=== PATIENT | female | born 1970 | race African-American/Black ===

== ENCOUNTER 2017-01-19 05:15 | Day surgery (SDC) | payer OTHER ==
[2017-01-17 14:03] VITALS: BMI 30.8
--- NOTE | 2017-01-19 05:43 | HP ---
History & Physical Update - History History: No Change - Physical Physical: No Change - Assessment Assessment: No Change - Plan Plan: No Change (Symptomatic Fibroids - for Robotic Hysterectomy, b/l salpingectomy)
[2017-01-19] MEDS ORDERED: ceFAZolin SODIUM 1 GM VIAL IVPB ONE (08:30)
[2017-01-19] MEDS ORDERED: ONDANSETRON 4 MG/2 ML VIAL IVPUSH PRN (08:46)
[2017-01-19] MEDS ORDERED: LACTATED RINGERS SOLUTION 1,000 ML IV SCH (09:00)
[2017-01-19] MEDS ORDERED: BUPIVACAINE HCL/PF 0.5% (5MG/ML) 10 ML VIAL IJ ONE ×2 (09:08→10:40)
[2017-01-19] MEDS ORDERED: ISOSULFAN BLUE 10 MG/ML VIAL SQ ONE (09:46)
[2017-01-19] MEDS ORDERED: IBUPROFEN 800 MG/8 ML IJ IVPB PRN (10:59)
[2017-01-19] MEDS ORDERED: LACTATED RINGERS SOLUTION 1,000 ML/1,000 ML INFUS.BAG IV SCH (11:00)
[2017-01-19] MEDS ORDERED: HYDROmorphone HCL CARPU-JECT 1 MG/1 ML DISP.SYRIN IVPB PRN (11:01)
--- NOTE | 2017-01-19 11:04 | OP ---
Operative Note - Note: Operative Date: 01/19/17 Pre-Operative Diagnosis: fibroids, AUB Operation: robotic assisted total laparoscopic hysterectomy, b/l salpingectomy, cystoscopy Findings: normal b/l tubes and ovaries fibroid uterus right lower segment fibroid Surgeon: Leena Shaikh Community [employer] Education Coordinator: Sailaja Arce Anesthesiologist/METAL MOULDER: Alta Mathews MD Anesthesia: General Specimens Removed: uterus, bilateral fallopian tubes, cervix Estimated Blood Loss (mls): 400 Drains, Volume Out (mls): 100 (clear urine) Operative Report Dictated: Yes
[2017-01-20 08:26] LABS: BASOPHIL 0.3 % (0-2.0); EOSINOPHIL 0.1 % (0-4.5); MCH 25.8 pg (25.7-33.7); MEAN CELL VOLUME 80.7 fl (80-96); MEAN PLT VOLUME 7.4 fl (7.5-11.1); NEUTROPHILS 75.5 % (42.8-82.8); PLATELET COUNT 281 K/MM3 (134-434); RDW 14.6 % (11.6-15.6); WHITE BLOOD COUNT 11.2 K/mm3 (4.0-10.0)
[2017-01-20 08:45] LABS: ANION GAP 8 (8-16); CALCIUM 7.6 mg/dL (8.5-10.1); CO2 27 mmol/L (21-32); CREATININE 0.8 mg/dL (0.55-1.02); GLUCOSE,RANDOM 131 mg/dL (74-106)
[2017-01-20] MEDS: HYDROmorphone HCL 2 MG TABLET PO PRN ×3 (09:14→19:58)
[2017-01-20] MEDS ORDERED: ENOXAPARIN NA (PORCINE) 40 MG/0.4 ML DISP.SYRIN SQ SCH (10:00)
[2017-01-20] MEDS ORDERED: FLU VACC QS2017-18 36MOS UP/PF 60 MCG/0.5 ML SYRINGE IM ONE (11:00)
[2017-01-20 12:23] LABS: BASOPHIL 0.3 % (0-2.0); EOSINOPHIL 0.2 % (0-4.5); MCH 26.6 pg (25.7-33.7); MCHC 32.8 g/dl (32.0-36.0); NEUTROPHILS 69.3 % (42.8-82.8); PLATELET COUNT 281 K/MM3 (134-434); RDW 14.9 % (11.6-15.6); WHITE BLOOD COUNT 10.2 K/mm3 (4.0-10.0)
--- NOTE | 2017-01-20 13:06 | PATH ---
Surgical Pathology Report Patient Name: ADEBAYO RICHARDSON [facility]. Rec. 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 Specimen(s) Received A: UTERUS AND CERVIX B: RIGHT FALLOPIAN TUBE C: LEFT FALLOPIAN TUBE Clinical History Fibroids, AUB, Pelvic pain Final Diagnosis A. UTERUS AND CERVIX, HYSTERECTOMY: UTERUS AND CERVIX, 178 GRAMS, WITH LEIOMYOMATA, SUPERFICIAL ADENOMYOSIS, PROLIFERATIVE ENDOMETRIUM, AND CERVIX WITH CHRONIC INFLAMMATION. B. RIGHT FALLOPIAN TUBE, SALPINGECTOMY: FULL LUMINAL PORTION OF BENIGN FALLOPIAN TUBE, INCLUDING FIMBRIATED END. C. LEFT FALLOPIAN TUBE, SALPINGECTOMY: FULL LUMINAL PORTION OF UNREMARKABLE FALLOPIAN TUBE, INCLUDING FIMBRIATED END. Electronically Signed Harshal Rosario M.D. Gross Description A. Received in formalin labeled "uterus and cervix," is a 178 g hysterectomy specimen including a uterus with an attached cervix. There is no attached adnexa. The specimen measures 10 cm from superior to inferior, 0.8 cm from left to right and 4.6 cm from anterior to posterior. The serosa is heller-pink and shaggy with focal bulging subserosal nodules measuring 1.9 and 4.0 cm in greatest dimension. There is a focal defect in the cervix. The cervix measures 3 cm in length and averages 2.6 cm in diameter. The ectocervix is pink-heller, smooth and glistening. The endocervix is unremarkable. The endometrial cavity measures 5 cm in length and 1.8 cm from cornu to cornu. The endometrium is heller-red and averages 0.3 cm in thickness. The myometrium is heller-pink, trabeculated and averages 2.2 cm in thickness. The cut surface of the subserosal nodules is heller, firm to rubbery and displays whorled architecture. No areas of hemorrhage or necrosis are identified. Landfill Gas Technician sections are submitted in 10 cassettes as follows: 1-2-cervix; 6-8-lrtgphpjvhfcbb; 2-22-ieilrtripa nodules. B. Received in formalin labeled "right fallopian tube," is a 3.5 cm in length fimbriated fallopian tube. The outer surface is heller bragg and smooth. Sectioning reveals an unremarkable lumen. Landfill Gas Technician sections are submitted in 2 cassettes as follows: 1-fimbria; 2-cross sections of fallopian tube. C. Received in formalin labeled "left fallopian tube," is a 4.3 cm in length fimbriated fallopian tube. The outer surface is chowdhury purple and smooth. Sectioning reveals an unremarkable lumen. Landfill Gas Technician sections are submitted in 2 cassettes as follows: 1-fimbria; 2-cross sections of fallopian tube. 01/19/2017 [facility]01/19/2017
--- NOTE | 2017-01-20 13:33 | PN ---
Progress Note, Physician Chief Complaint: Pt seen/evaluated and doing well. Ambulating, voiding. NO flatus yet. Tolerating diet. Having some gas pains but otherwise no complaints. Denies VB. No back pain. - Current Medication List Current Medications: Active Medications Enoxaparin Sodium (Lovenox -) 40 mg SQ DAILY [facility] Last Admin: 01/20/17 09:15 Dose: 40 mg Fentanyl (Sublimaze Injection -) 50 mcg IVPUSH [id number] PRN PRN Reason: PAIN Last Admin: 01/19/17 12:30 Dose: 50 mcg Hydromorphone HCl (Dilaudid -) 2 mg PO Q4H PRN PRN Reason: PAIN Last Admin: 01/20/17 09:14 Dose: 2 mg Hydromorphone HCl (Dilaudid Injection -) 1 mg IVPB Q4H PRN PRN Reason: PAIN Lactated Ringer's (Lactated Ringers Solution) 1,000 mls @ 125 mls/hr IV ASDIR [facility] Last Admin: 01/19/17 21:04 Dose: 125 mls/hr Lactated Ringer's (Lactated Ringers Solution) 1,000 ml in 1,000 mls @ 125 mls/ hr IV ASDIR [facility] Last Admin: 01/19/17 13:00 Dose: 0 mls Ibuprofen (Caldolor Injection -) 800 mg IVPB Q8H PRN PRN Reason: PAIN OR FEVER Last Admin: 01/19/17 21:03 Dose: 800 mg Ondansetron HCl (Zofran Injection) 4 mg IVPUSH Q6H PRN PRN Reason: NAUSEA AND/OR VOMITING Last Admin: 01/19/17 14:20 Dose: 4 mg - Objective Vital Signs: Vital Signs Temperature 99.2 F 01/20/17 09:00 Pulse Rate 99 H 01/20/17 09:00 Respiratory Rate 20 01/20/17 09:00 Blood Pressure 117/67 01/20/17 09:00 O2 Sat by Pulse Oximetry (%) 100 01/19/17 13:43 Constitutional: Yes: Well Nourished, No Distress, Calm Eyes: Yes: Conjunctiva Clear, EOM Intact HENT: Yes: Atraumatic, Normocephalic Respiratory: Yes: Regular, CTA Bilaterally Gastrointestinal: Yes: Soft, Distention (mild distention), Tenderness. No: Palpable Mass, Vomiting Genitourinary: No: CVA Tenderness - Left, CVA Tenderness - Right, Prakash Present , Hematuria, Oliguria, Vaginal Bleeding Extremities: Yes: WNL Neurological: Yes: Alert, Oriented Psychiatric: Yes: Alert, Oriented Labs: CBC, BMP 01/20/17 12:00 01/20/17 07:00 Problem List - Problems (1) History of robot-assisted laparoscopic hysterectomy Code(s): Z90.710 - ACQUIRED ABSENCE OF BOTH CERVIX AND UTERUS (2) Anemia Code(s): D64.9 - ANEMIA, UNSPECIFIED Assessment/Plan 46 y/o POD#1 s/p Robotic assisted TLH and b/l salpingectomy AFVSS regular diet encourage ambulation oral pain meds Hgb stable (8.4 this a.m., 8.2 this afternoon) - pt asymptomatic, no signs/sx of active bleeding ok for discharge home once passes flatus
[2017-01-20] MEDS: SIMETHICONE 80 MG TAB.CHEW (FP) PO PRN ×2 (14:12→20:00)
[2017-01-20 14:30] VITALS: BP 100/61; PULSE 106; TEMP 98.9
--- NOTE | 2017-01-20 15:27 | PN ---
Progress Note (short form) - Note Progress Note: Anesthesia POD#1 S/P Robotic Laproscopic Hysterectomy under GA VSS,no N/V,pain is controlled. No complications seen Nichelle Victor MD.
[2017-01-20] MEDS ORDERED: BISACODYL 10 MG SUPP.RECT RC ONE (16:30)
--- NOTE | 2017-01-23 12:14 | OP ---
DATE OF OPERATION: 01/19/2017 PREOPERATIVE DIAGNOSIS: Abnormal uterine bleeding, uterine fibroids, and pelvic pain. PROCEDURE: Robotic-assisted total hysterectomy, bilateral salpingectomy as well as cystoscopy. FINDINGS: Included normal bilateral tubes and ovaries, fibroid uterus with a right lower uterine segment fibroid. SURGEON: Leena Shaikh DO HEAT PLANT SPECIALIST: Sailaja Arce MD ANESTHESIA: General by Jose Melendrez ESTIMATED BLOOD LOSS: 400 mL. COMPLICATIONS: None. SPECIMENS: Included uterus, fallopian tubes, and cervix sent to Pathology for permanent evaluation. DISPOSITION: Stable to PACU. BRIEF HISTORY AND PROCEDURE: The patient is a 46-year-old female who had been seen in the office with complaints of heavy menstrual periods and abdominal pain. Upon ultrasound examination, she was found to have multiple uterine fibroids. She was counseled on her options of medical, surgical, and noninvasive options, and she elected to undergo a hysteroscopy with robotic assistant store leader. The patient was admitted to [facility] on January 19, 2017. Consents for the procedure were confirmed. The patient was then taken back to the operating room. She was given general anesthesia and placed in a dorsal lithotomy position. DESCRIPTION OF PROCEDURE: A hard time-out was performed. She was prepped and draped in the usual sterile fashion. A Prakash catheter was placed under sterile conditions. Attention was then turned to the abdomen where an 8-mm infraumbilical incision was created and the Veress needle was placed intra-abdominally. The abdomen was insufflated, and the 8-mm trocar was placed in the base of the umbilicus. Camera was inserted. At this time and after confirmation of intra-abdominal placement, the remainder of the 8-mm robotic trocars were placed under direct visualization. The robot was then docked. Attention was then turned to the left side where the utero-ovarian ligament was clamped, cauterized, and cut with a vessel sealer device. The round ligament was clamped, cauterized, and cut with a vessel sealer device. The anterior bladder flap was developed. The vesicouterine peritoneum was dissected down from the anterior portion of the uterus and the cervix. At this time, the uterus uterine arteries were isolated, clamped, cauterized, and cut with the vessel sealer device down to the level of the uterosacral ligaments. Attention was then turned to the right side where the utero-ovarian ligament was clamped, cauterized, and cut with a vessel sealer device. The round ligament was also clamped, cut, and divided with a vessel sealer device. A large lower right uterine segment fibroid was now noted right below the level of the round ligament. The ureter on the right side was identified. At this point, the fibroid was elevated and partially dissected out of its capsule. After this dissection and elevating the fibroid cephalad, the uterine arteries were able to be isolated, clamped, cauterized, and cut with the vessel sealer device along the uterus down to the cervix at the level of the uterosacral ligament. Again, the ureter was identified. After this dissection, it was noted to be peristalsing and of normal caliber. Next, the colpotomy was created in a 360-degree fashion at the cervicovaginal junction, and the uterus was then removed from the vagina at this time. The vaginal cuff was reapproximated using the 0 V-Lock suture in a running fashion. Excellent hemostasis was achieved. Again, bilateral ureters were inspected and noted to be of normal caliber and peristalsing. Bilateral fallopian tubes were elevated and dissected off their attachments to the ovary and the mesosalpinx, and they were removed through the laparoscopic port. At this point, a cystoscopy was completed the evaluate for ureteral jets, and normal bladder dome and normal bilateral ureteral jets were appreciated at this time. The skin was reapproximated using 4-0 Biosyn and Dermabond. The Prakash catheter was replaced under sterile conditions. The patient was awoken from anesthesia in stable condition and taken to the recovery room where she was recovering in stable condition. Sponge, needle, and instrument counts were all reported to be correct. LEENA SHAIKH DO /[id number]
== END 2017-01-20 20:00 | disposition home or self-care (01) ==
LOC: JASUSAT 05:15 → J3W 13:24 → JASUSAT 01-20 20:00
PROVIDERS: ATTEND Obstetrics & Gynecology
PROC: 0UT2FZZ Resection of Bilateral Ovaries, Via Natural or Artificial Opening With Percutaneous Endoscopic Assistance (ICD-10-PCS; 2017-01-19)
PROC: 0UT7FZZ Resection of Bilateral Fallopian Tubes, Via Natural or Artificial Opening With Percutaneous Endoscopic Assistance (ICD-10-PCS; 2017-01-19)
PROC: 8E0W4CZ Robotic Assisted Procedure of Trunk Region, Percutaneous Endoscopic Approach (ICD-10-PCS; 2017-01-19)
PROC: 0UT9FZZ Resection of Uterus, Via Natural or Artificial Opening With Percutaneous Endoscopic Assistance (ICD-10-PCS; principal; 2017-01-19 08:00)
DX: N80.0 Endometriosis of uterus (principal); D25.9 Leiomyoma of uterus, unspecified; N72 Inflammatory disease of cervix uteri
CPT/HCPCS: 58552; S2900; 36415; 80048; 85025; 88302-TC; 88307-TC; 90686; 94760